=== PATIENT | male | born 1985 ===

== ENCOUNTER 2018-02-01 16:41 | Emergency (ER) | payer OTHER ==
--- NOTE | 2018-02-01 16:51 | ED PDOC ---
HPI: Wound Care - HPI Time Seen by Provider: 02/01/18 16:46 Chief Complaint (Nursing): Abnormal Skin Integrity Chief Complaint (Provider): Finger Laceration History Per: Patient History Of Present Illness: 32 year old male who is right hand dominant presents to the emergency department with a laceration to his right index finger. Patient reports that just prior to arrival h accidentally cut himself with knife. Denies numbness/ tingling. Tetanus not up to date. FAMILY PROVIDER,NO Exam Limitations: no limitations Onset/Duration Of Symptoms: Mins Location Of Injury: Right: Hand (index finger) Past Medical History Reviewed: Historical Data, Nursing Documentation, Vital Signs Vital Signs: Last Vital Signs Temp 98.4 F 02/01/18 16:42 Pulse 76 02/01/18 16:42 Resp 16 02/01/18 16:42 BP 130/65 02/01/18 16:42 Pulse Ox 96 02/01/18 16:42 - Medical History PMH: No Chronic Diseases - Family History Family History: States: No Known Family Hx - Living Arrangements Living Arrangements: With Family - Immunization History Hx Tetanus Toxoid Vaccination: No Hx Influenza Vaccination: No Hx Pneumococcal Vaccination: No - Home Medications Home Medications: Ambulatory Orders Medication Instructions Recorded Ibuprofen [Motrin] 1 tab PO TID PRN #20 tab 10/26/16 Diclofenac 25 mg PO TID PRN #21 ect 12/16/16 - Allergies Allergies/Adverse Reactions: Allergies Allergy/AdvReac Type Severity Reaction Status Date / Time No Known Allergies Allergy Verified 02/01/18 16:42 Review of Systems ROS Statement: Except As Marked, All Systems Reviewed And Found Negative Constitutional: Negative for: Fever, Chills Musculoskeletal: Positive for: Hand Pain (laceration to right index finger) Physical Exam - Reviewed Nursing Documentation Reviewed: Yes Vital Signs Reviewed: Yes - Physical Exam Appears: Positive for: Non-toxic, No Acute Distress Skin: Positive for: Normal Color, Warm, Dry. Negative for: Rash Extremity: Positive for: Normal ROM (Normal ROM of right hand), Other (2.5 cm laceration to linear volar surface of right hand index finger ). Negative for: Deformity, Swelling Neurologic/Psych: Positive for: Alert, Oriented - ECG O2 Sat by Pulse Oximetry: 96 Procedure: Wound Repair - Time Performed Time Performed: 17:35 - Time Out Time Out: Side verified, Site verified, Patient ID confirmed, Sterile procedures obs. - Procedure Procedure: Wound Repair: laceration repair - Consent Obtained Consent obtained: Verbal - Performed by Performed by: Mid-level Provider - Indications Indication(s):: Laceration - Location Finger:: Right (right second finger) Shape:: Linear Dimensions Length cm: 2.5 - Anesthetic Technique Local/Regional Anesthetic:: Lidocaine 1% (3 mL) - Debris Debris:: None - Wound repair method Sutures:: # (8), Size (5:0), Type (prolene), Technique (interupted) - Patient tolerated procedure Patient Tolerated Procedure:: Well Medical Decision Making Medical Decision Makin Initial Impression 32 year old male presenting with hand laceration Initial plan: * Adacel (10-64 years) 0.5 ml im * reevaluation NIMA TORRES, thank you for letting us take care of you today. Your provider was Gianna Willis MD and you were treated for FINGER LACERATION. The emergency medical care you received today was directed at your acute symptoms. If you were prescribed any medication, please fill it and take as directed. It may take several days for your symptoms to resolve. Return to the Emergency Department if your symptoms worsen, do not improve, or if you have any other problems. Please contact your doctor or call one of the physicians/clinics you have been referred to that are listed on the Patient Visit Information form that is included in your discharge packet. Bring any paperwork you were given at discharge with you along with any medications you are taking to your follow up visit. Our treatment cannot replace ongoing medical care by a primary care provider outside of the emergency department. Thank you for allowing the [facility] [employer] team to be part of your care today. Documented by Mceca Perry acting as a scribe for Pa Locke PA-C. All medical record entries made by the Scribe were at my direction and personally dictated by me. I have reviewed the chart and agree that the record accurately reflects my personal performance of the history, physical exam, medical decision making, and the department course for this patient. I have also personally directed, reviewed, and agree with the discharge instructions and disposition. Disposition - Clinical Impression Clinical Impression: Finger laceration - Patient ED Disposition Is Patient to be Admitted: No Counseled Patient/Family Regarding: Studies Performed, Diagnosis - Disposition Disposition: Routine/Home Disposition Time: 17:57 Condition: FAIR Additional Instructions: FOLLOW UP WITH PMD /URGENT CARE/ ED IN 8-10 DAYS FOR REMOVAL OF SUTURES FOLLOW UP WITH PMD/URGENT CARE/ ED IN 2 DAYS FOR WOUND EVALUATION. Instructions: Laceration Repair With Stitches (DC) Forms: [facility] ED School/Work Excuse
[2018-02-01] MEDS ORDERED: Tdap Vaccine 0.5 ml Vial (10-64 yrs) IM ONE (16:59)
[2018-02-01 18:45] VITALS: BP 117/70; PULSE 72; RESP 18; TEMP 98
[2018-02-01 22:17] VITALS: O2SAT 96
== END 2018-02-01 18:45 | disposition home or self-care (01) ==
LOC: H.ER 16:41
DX: S61.210A Laceration without foreign body of right index finger without damage to nail, initial encounter (principal); W26.0XXA Contact with knife, initial encounter; Y92.89 Other specified places as the place of occurrence of the external cause